=== PATIENT | male | born 1935 ===

== ENCOUNTER 2022-04-10 00:19 | Day surgery (SDC) | payer MEDICARE, SELFPAY ==
[2022-04-09 15:15] VITALS: BMI 25.2
[2022-04-10] VITALS (9 sets, daily range): BP systolic 136–153; BP diastolic 85–93; PULSE 72–95; RESP 16–20; TEMP 36.5–36.7; O2SAT 93–97; BMI 25.0
[2022-04-10] MEDS: SODIUM CHLORIDE 0.9% IV 500 ML 100 ML IV CONT (07:30)
[2022-04-10 07:32] LABS: Hematocrit 40.3 % (42.0-52.0); Hemoglobin 13.2 g/dL (14.0-18.0); Mean Corpuscular HGB Conc 32.8 g/dl (32-36); Mean Corpuscular Hemoglobin 32.4 pg (26-34); Mean Corpuscular Volume 98.8 fl (80-100); Mean Platelet Volume 9.7 fl (7.4-10.4); Platelet Count Result 208 k/mm3 (150-375); Red Blood Count 4.08 M/mm3 (4.6-6.20); White Blood Count 6.9 K/mm3 (4.5-10.0)
[2022-04-10 07:37] LABS: Anion Gap 5 mmol/L (8-16); Blood Urea Nitrogen 18 mg/dL (9-20); Calcium 8.5 mg/dL (8.4-10.2); Carbon Dioxide 31 mmol/L (22-30); Chloride 105 mmol/L (98-107); Estimated CRCL calculation 78 ml/min; Estimated Glomerular Filt Rate > 60; Glucose 101 mg/dL (65-110); Potassium 3.7 mmol/L (3.4-5.0); Sodium 141 mmol/L (137-145)
--- NOTE | 2022-04-10 09:39 | SUR.PREOP ---
Dr. Ritter on unit reviewing chart and speaking with patient.
--- NOTE | 2022-04-10 09:52 | WPDMODSED ---
Moderate Sedation Note-Pt Data Patient Data Diagnosis: DAVIS Fatigue, intermittent nonexertional chest pain chronic atrial fibrillation abnormal nuclear stress test Present Complaint: this is an 86-year-old man who has been reporting symptoms of exertional fatigue of recent onset. He has a history of chronic atrial fibrillation but no prior history of coronary disease. He also is having intermittent chest pain that is not related to exertion. 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 No previous known history of coronary disease. Procedure to be performed/Plan: Left heart catheterization Allergies Allergy/AdvReac Type Severity Reaction Status Date / Time No Known Allergies Allergy Verified 04/10/22 07:19 Home Medications Medication Instructions Recorded Confirmed Type apixaban 5 mg tablet (Eliquis) 5 mg BID 04/09/22 04/09/22 History cyanocobalamin (vitamin B-12) 1,000 mcg subcut MO 04/09/22 04/09/22 History 1,000 mcg/mL injection solution metoprolol succinate 50 mg 50 mg PO DAILY 04/09/22 04/10/22 History tablet,extended release 24 hr pantoprazole 40 mg tablet,delayed 40 mg PO DAILY 04/09/22 04/10/22 History release ursodiol 300 mg capsule 300 mg PO TID 04/09/22 04/10/22 History Current Medications: Active Medications Sodium Chloride (Normal Saline Iv) 500 mls @ 100 mls/hr IV CONT .Q5H DILEEP Sedation/Anesthesia: No previous sedation/anesthesia problems (including family history). [facility] Social History Social History Smoking status: Never smoker Alcohol intake: never Substance use type: does not use Living arrangements: alone Spiritual care concerns: No Mod Sed Physical Exam Physical Exam Pre Procedural Exam: Normal: Appearance ( healthy-appearing elderly man), Throat, Airway, Lungs, Heart Size, Heart Rate, Neuro Exam and Extremities and Variation: Heart Rhythm ( irregularly irregular) Hours since solid foods: 12 Hours since liquid intake: 12 Mallampati Classification: class II Internal Medicine - PN: Obj Da Vital Signs Vital Signs: Vital Signs - 24 hr 04/10/22 07:21 Temperature 36.5 C Pulse Rate 87 Respiratory Rate 20 Blood Pressure 146/90 H Pulse Oximetry 97 Oxygen Delivery Room Air Meds/Results Medications: Active Medications Generic Name Dose Route Start Last Admin Trade Name Freq PRN Reason Stop Dose Admin Sodium Chloride 500 mls @ 100 mls/hr 04/09/22 15:20 Normal Saline Iv IV CONT .Q5H DILEEP Labs CBC & Chem 7: 04/10/22 07:16 04/10/22 07:16 Labs: Laboratory Results - last 24 hr 04/10/22 04/10/22 07:16 07:16 WBC 6.9 RBC 4.08 L Hgb 13.2 L Hct 40.3 L MCV 98.8 MCH 32.4 MCHC 32.8 RDW 13.0 Plt Count 208 MPV 9.7 Sodium 141 Potassium 3.7 Chloride 105 Carbon Dioxide 31 H Anion Gap 5 L BUN 18 Creatinine 0.60 L Estim Creat Clear Calc 78 Estimated GFR > 60 Glucose 101 Calcium 8.5 ASA Classification/Sedation ASA Classification/Sedation ASA Class: II Emergent: No Risks: Risks, benefits and alternatives explained and patient/family accepted plan for sedation. Patient re-evaluated immediately prior to sedation.
--- NOTE | 2022-04-10 10:33 | WPDCARDPROC ---
Cardiac Cath Procedure Note Date of procedure:: 04/10/22 Performing physician:: Jeff Ritter MD Indication:: exertional fatigue intermittent chest pain abnormal nuclear stress test chronic atrial fibrillation Brief clinical history:: this is an 86-year-old man with chronic atrial fibrillation who has been experiencing symptoms of increasing fatigue and intermittent chest pain which is nonexertional. A nuclear stress test indicated evidence of a previous inferior infarction which is not known to have occurred in the past. In this setting and angiogram has been recommended Procedure Procedure performed:: left ventriculogram coronary angiogram Angio-Seal to right femoral artery Sedation/Medication given:: fentanyl 25 mg Versed 1 mg case start time 10:09 a.m. case end time 10:30 a.m. sedation provided by Dennise Walsh RN, trained observer Access site:: right femoral artery Estimated blood loss:: 25 cc Procedure note:: patient was brought to the cardiac catheterization lab in the postabsorptive state where the right femoral triangle was prepared and draped normal fashion. Anesthesia was provided with 1% lidocaine infiltrated locally. Using modified Seldinger technique a 5 [place] sheath was placed into the right femoral artery after this left heart catheterization was carried out. A 5 [place] angled pigtail catheter was used to measure left-sided hemodynamics and to inject LV g in the ARZATE projection. After this standard 5 [place] FL4 catheter was used to engage and inject the left coronary artery multiple projections. A 5 [place] JR4 catheter used to engage and inject the right coronary artery. The cineangiograms were then reviewed and the case was terminated. An angiogram was done of the femoral artery through the sheath after this a 6 [place] Angio-Seal device was used to provide cutaneous hemostasis with good hemostatic result. He was taken to the holding area in stable condition with no evidence of a groin hematoma or other complication. Procedure was well tolerated. Findings:: Hemodynamics: Central aortic pressure his 136 over 62 left ventricle 136/0 end-diastolic 12 there is no systolic gradient on pullback across the aortic valve. Left ventricle: The LV is of normal size the global contractility appears to be mildly impaired with an ejection fraction about 45%. The left main coronary artery is large in caliber and nicely patent the left anterior descending is a moderate caliber artery extending down to the apex the LAD has minimal plaquing with luminal irregularities but no angiographically significant disease. Circumflex is a large caliber vessel dominant to the posterior circulation. The circumflex also has minimal luminal irregularities but no significant lesions are seen in the marginal branches or the posterior branches. It terminates in a medium-size left PDA which is quite tortuous but not disease. Right coronary artery is small in caliber and non dominant. The right coronary is free of disease. Conclusion:: 1. Left coronary dominant circulation with no significant coronary disease 2. mild global LV systolic dysfunction 3. false-positive stress test [facility] MD [facility]
== END 2022-04-10 14:00 | disposition home or self-care (01) ==
PROVIDERS: Visit Provider Specialist
PROC: 4A023N7 Measurement of Cardiac Sampling and Pressure, Left Heart, Percutaneous Approach (ICD-10-PCS; CPT 93452; principal; 2022-04-10 09:00)
DX: R94.39 Abnormal result of other cardiovascular function study (principal); R07.9 Chest pain, unspecified; R53.83 Other fatigue; I48.20 Chronic atrial fibrillation, unspecified; Z79.01 Long term (current) use of anticoagulants; I11.9 Hypertensive heart disease without heart failure; K74.60 Unspecified cirrhosis of liver; Z87.891 Personal history of nicotine dependence
CPT/HCPCS: 36415; 80048; 85027; 93458; C1760; C1887; C1894; G0269; J1644; J2250; J3010; J7040